=== PATIENT | female | born 1945 | race Caucasian/White ===

== ENCOUNTER 2016-11-07 13:16 | Day surgery (SDC) | payer OTHER, MEDICARE ==
[2016-11-07] MEDS ORDERED: ALBUTEROL 3 ML DEYVIAL ONE (13:42)
[2016-11-07] MEDS ORDERED: LIDOCAINE 1% 30 ML SDV ONE (14:00)
[2016-11-07] MEDS ORDERED: fentaNYL 100 MCG/2 ML INJ ONE (14:00)
[2016-11-07] MEDS ORDERED: LIDOCAINE 2% JELLY 5 ML TUBE ONE (14:00)
[2016-11-07] MEDS ORDERED: MIDAZOLAM 2 MG/2 ML VIAL ONE (14:00)
--- NOTE | 2016-11-08 20:16 | GPN ---
[f rep st] PROCEDURE NOTE PROCEDURE: Bronchoscopy. INDICATION: Bronchomalacia was previously diagnosed by CT scan of the chest. The significance of t his is being investigated by bronchoscopy. In addition, the vocal cords will be observed for vocal cord dysfunction. PROCEDURE NOTE: The procedure was done in the endoscopy unit in a negative pressure room, and 95 ma sks were worn. Appropriate time-out was performed. Informed consent was obtained from the patient. Topical anesthesia included a small amount of Hurricaine spray and 1% lidocaine, approximately 20 mL. Intravenous sedation was accomplished with 3 mg of Versed and 75 mcg of fentanyl. DESCRIPTION OF PROCEDURE: The bronchoscope was advanced through a bite block orally into the larynx . The vocal cords were observed. The larynx and the vocal cords were normal, and moved initially n ormally with respirations, phonation, and forced inhalation and exhalation maneuvers. Lidocaine was then applied to the vocal cords and this caused the patient to cough. The tip of the bronchoscope likely irritated the vocal cords as well. At this point, vocal cord dysfunction was observed. The patient's inspiratory efforts became somewhat raspy, and there was vocal cord adduction along the an terior 2/3 of the vocal cords with a relatively large "posterior chink" seen posteriorly. The [facility] hoscope was then advanced through the vocal cords and into the trachea and lower tracheobronchial tr ee bilaterally. Anatomy was normal bilaterally. There was mild erythema with scattered secretions consistent with a mild clinical bronchitis that the patient had developed 4 or 5 days prior to the p rocedure. Secretions were generally whitish and small in amounts. The trachea and the mainstem bro nchi bilaterally were observed with passive respiration. The airways remained intact with passive r espiration, and there was no evidence of narrowing. Forced inhalation and exhalation maneuvers were then done. Again, the airways remained intact regarding their circumference, and there was no evid ence of collapsibility with the forced exhalation maneuvers, no matter how vigorous the patient was in trying to do them. The patient was unable to perform the Valsalva maneuver secondary to her reji tion. She would not cooperate with the correct effort needed to do a Valsalva. The patient was the n instructed to cough, and the lower tracheobronchial tree was irritated somewhat with the scope whi ch caused increased coughing. With cough, there was narrowing of the trachea and of the proximal ma instem bronchi secondary to the membranous portions collapsing anteriorly. With cough, the narrowin g did not result in complete occlusion, but was perhaps more narrowed than in some people as the mem branous portion was forced anteriorly with positive intrathoracic pressure during a cough event. Th e tracheal rings themselves remained intact and appeared to be normal. There was no evidence of sig nificant bronchomalacia per Se. ASSESSMENT: 1. Vocal cord dysfunction was seen, as described above. This was only seen after irritation of the vocal cords. 2. No definite bronchomalacia was observed. With passive enforced exhalation, there was no collaps ibility of the trachea or of the proximal mainstem bronchi. With cough, the membranous portions of the trachea and proximal mainstem bronchi did collapse anteriorly. This is a normal physiologic res ponse of the membranous portion of the trachea and proximal bronchi. However, the membranous portio n perhaps collapsed somewhat more than in some individuals. However, total occlusion was not seen. I do not believe that this collapse is of physiologic significance for her pulmonary symptoms of morales bjective dyspnea or her complaints of shortness of breath at other times or hypoxemia at altitude. Copy requested to: Yaneth Maier M.D. [facility] /[id number]/MODL
== END 2016-11-07 17:10 | disposition home or self-care (01) ==
LOC: FSGY 13:16
PROVIDERS: ATTEND Internal Medicine Pulmonary Disease
PROC: 0BJ08ZZ Inspection of Tracheobronchial Tree, Via Natural or Artificial Opening Endoscopic (ICD-10-PCS; principal; 2016-11-07 14:30)
DX: R06.02 Shortness of breath (principal); R13.10 Dysphagia, unspecified; J38.3 Other diseases of vocal cords; G47.33 Obstructive sleep apnea (adult) (pediatric); I10 Essential (primary) hypertension; K21.9 Gastro-esophageal reflux disease without esophagitis; Z96.641 Presence of right artificial hip joint
CPT/HCPCS: J2250; J3010

== ENCOUNTER → 2017-07-18 | Outpatient (CLI) | payer OTHER, MEDICARE | LOC: FIMAGING 09:26 | PROVIDERS: ATTEND Internal Medicine | DX: Z12.31 Encounter for screening mammogram for malignant neoplasm of breast (principal) | CPT/HCPCS: G0202 ==

== ENCOUNTER → 2018-07-05 | Outpatient (CLI) | payer OTHER, MEDICARE | LOC: FIMAGING 14:51 | PROVIDERS: ATTEND Internal Medicine | DX: Z12.31 Encounter for screening mammogram for malignant neoplasm of breast (principal) ==

== ENCOUNTER → 2018-09-10 | Outpatient (CLI) | payer OTHER, MEDICARE | LOC: FIMAGING 14:55 | PROVIDERS: ATTEND Neurological Surgery | DX: M48.07 Spinal stenosis, lumbosacral region (principal); M53.87 Other specified dorsopathies, lumbosacral region ==

== ENCOUNTER 2018-10-14 07:15 | Inpatient (IN) | payer OTHER, MEDICARE ==
--- NOTE | 2018-10-14 06:05 | PDHPUP ---
History & Physical Update H&P update statement: This history and physical update is based on an assessment of the patient which was completed after admission or registration (within 24 hours), but prior to the surgery/procedure. H&P update: H&P reviewed & patient examined, no change in patient's condition since H&P completed
[2018-10-14] MEDS ORDERED: ceFAZolin 2 GM/DEXTROSE 100 ML IV ONE (08:44)
[2018-10-14] MEDS ORDERED: ACETAMINOPHEN 500 MG TAB PO ONE (08:44)
[2018-10-14] MEDS ORDERED: GABAPENTIN 300 MG CAP PO ONE (08:44)
[2018-10-14] MEDS ORDERED: REMIFENTANIL HCL 1 MG VIAL ONE ×2 (09:20)
[2018-10-14] MEDS ORDERED: PROPOFOL 200 MG/20 ML VIAL ONE (09:20)
[2018-10-14] MEDS ORDERED: PROPOFOL/EMULSION 500 MG/50 ML BOTTLE IV ONE ×5 (09:20→12:26)
[2018-10-14] MEDS ORDERED: THROMBIN (BOVINE) 20,000 UNIT VIAL TP ONE (09:51)
[2018-10-14] MEDS ORDERED: CHLORHEXIDINE GLUC HIBICLENS 118 ML BTL TP ONE (09:52)
[2018-10-14] MEDS ORDERED: BUPIVACAINE 0.25% 30 ML SDV ONE (09:52)
[2018-10-14] MEDS ORDERED: EPINEPHrine 1 MG/ML INJ ONE (09:52)
[2018-10-14] MEDS ORDERED: BACITRACIN 50,000 UNITS/10 ML SYR IRR ONE (09:52)
[2018-10-14] MEDS ORDERED: traMADol 50 MG TAB PO PRN (10:17)
[2018-10-14] MEDS ORDERED: NALOXONE HCL 0.4 MG/ML INJ IVP PRN ×3 (10:20→16:18)
[2018-10-14] MEDS ORDERED: ONDANSETRON 4 MG/2 ML VIAL IVP PRN (10:20)
[2018-10-14] MEDS ORDERED: LACTULOSE 20 GM/30 ML UDCUP PO PRN (10:20)
[2018-10-14] MEDS ORDERED: morphINE PCA 30 MG/30 ML PCA IV PRN (10:20)
[2018-10-14] MEDS ORDERED: diphenhydrAMINE 25 MG CAP PO PRN (10:20)
[2018-10-14] MEDS ORDERED: POLYETHYLENE GLYCOL 3350 17 GM PKT PO PRN (10:20)
[2018-10-14] MEDS ORDERED: HYDROCODONE/APAP 5/325 TAB PO PRN (10:20)
[2018-10-14] MEDS ORDERED: BISACODYL 10 MG SUPP PR PRN (10:20)
[2018-10-14] MEDS ORDERED: MAGNESIUM HYDROXIDE 30 ML UDCUP PO PRN (10:20)
[2018-10-14] MEDS ORDERED: ONDANSETRON DISINTEGRATING 4 MG TAB PO PRN (10:20)
[2018-10-14] MEDS ORDERED: HYDROmorphONE/DILAUDID 1 MG/ML INJ IVP PRN (10:20)
[2018-10-14] MEDS ORDERED: NS 1,000 ML IV SCH (10:30)
[2018-10-14] MEDS ORDERED: MIDAZOLAM 2 MG/2 ML VIAL IVP ONE (10:48)
--- NOTE | 2018-10-14 10:48 | PDANEPAE ---
ANE History of Present Illness CLBP, radiculopathy. Here for L4-S1 TLIF with emilie [place] Past Medical History - Cardiovascular History Hx Hypertension: Yes Hx Arrhythmias: No Hx Coronary Artery / Peripheral Vascular Disease: No Hx CHF / Valvular Disease: No Hx Palpitations: No Cardiovascular History Comment: pcp monitors bp medications - Pulmonary History Hx COPD: No Hx Asthma/Reactive Airway Disease: No Hx Recent Upper Respiratory Infection: No Hx Oxygen in Use at Home: No Hx Sleep Apnea: No Sleep Apnea Screening Result - Last Documented: Positive Pulmonary History Comment: current cold. tracheobronchomylasia - Neurologic History Hx Cerebrovascular Accident: No Hx Seizures: No Hx Dementia: No Neurologic History Comment: numbness L hand. - Endocrine History Hx Diabetes: No - Renal History Hx Renal Disorders: No - Liver History Hx Hepatic Disorders: No - Neurological & Psychiatric Hx Hx Neurological and Psychiatric Disorders: No - Cancer History Hx Cancer: No - Congenital Disorder History Hx Congenital Disorders: No - GI History Hx Gastrointestinal Disorders: Yes Gastrointestinal History Comment: reflux - Other Health History Other Health History: Mild hearing loss R ear. wears glasses. arthritis - Chronic Pain History Chronic Pain: Yes (generalized arthritis) - Surgical History Prior Surgeries: left mariela with Charanjit 01/29/14. Gamma knife R ear for neuroma 2010. appy 2002. R hip plasty 2001 ANE Review of Systems Review of Systems: - Exercise capacity METS (RN): 4 METS ANE Patient History - Allergies Allergies/Adverse Reactions: Tetanus Vaccines and Toxoid [Tetanus Vaccines & Toxoid] Allergy (Severe, Verified 11/06/16 12:38) Anaphylaxis latex Allergy (Verified 11/06/16 12:38) Rash - Home Medications Home Medications: Biotin 300 mcg PO DAILY 09/09/18 [Last Taken 09/09/18] Cholecalciferol Vit D3 [Vitamin D3 (*)] 2,000 units PO DAILY 09/09/18 [Last Taken 09/09/18] Gabapentin 1,200 mg PO TID 09/09/18 [Last Taken 09/09/18] Herbals/Supplements -Info Only 1 ea PO DAILY 09/09/18 [Last Taken Unknown] Hydrochlorothiazide [HCTZ (*)] 25 mg PO DAILY 09/09/18 [Last Taken 09/09/18] Irbesartan [Avapro] 300 mg PO DAILY 09/09/18 [Last Taken 09/09/18] Magnesium Oxide [Magnesium Oxide 400 mg (*)] 400 mg PO DAILY 09/09/18 [Last Taken 09/09/18] Metoprolol Tartrate [Lopressor 25 mg (*)] 25 mg PO HS 09/09/18 [Last Taken 09/09] Multivitamins [Multivitamin (*)] 1 each PO DAILY 09/09/18 [Last Taken 09/09/18] Erie-3 Fatty Acids [Fish Oil 1000 mg (*)] 1,000 mg PO HS 09/09/18 [Last Taken 09/09/18] Pantoprazole Sodium [Protonix 40mg (*)] 40 mg PO DAILY 09/09/18 [Last Taken 03/21] Pramipexole Di-HCl [Mirapex 0.25 mg (*)] 0.25 mg PO DAILY@17 09/09/18 [Last Taken 09/08/18] Ranitidine HCl [Zantac] 150 mg PO DAILY 09/09/18 [Last Taken 09/09/18] Tramadol HCl 50 mg PO DAILY PRN 09/09/18 [Last Taken Unknown] - NPO status NPO Since - Liquids (Date): 10/14/18 NPO Since - Liquids (Time): 07:00 NPO Since - Solids (Date): 10/13/18 NPO Since - Solids (Time): 20:30 - Smoking Hx Smoking Status: Former smoker - Family Anes Hx Family Hx Anesthesia Complications: none ANE Labs/Vital Signs - Vital Signs Blood Pressure: 168/61 Heart Rate: 67 Respiratory Rate: 16 O2 Sat (%): 95 Height: 157.48 cm Weight: 70.76 kg ANE Physical Exam - Airway Neck exam: FROM Mallampati Score: Class 2 Mouth exam: normal dental/mouth exam - Pulmonary Pulmonary: no respiratory distress, clear to auscultation - Cardiovascular Cardiovascular: regular rate and rhythym, no murmur, rub, or gallop - ASA Status ASA Status: III ANE Anesthesia Plan Anesthesia Plan: general endotracheal anesthesia Total IV Anesthesia: Yes
[2018-10-14] MEDS ORDERED: MIDAZOLAM 2 MG/2 ML VIAL ONE (10:54)
--- NOTE | 2018-10-14 10:59 | PDMN ---
Medical Necessity Medical necessity: 73 yo s/p TLIF CPT [address] [facility] [place] S820 Lumbar Fusion, 3 days, [facility] IP only
[2018-10-14] MEDS ORDERED: ROCURONIUM 50 MG/5 ML VIAL ONE (15:13)
[2018-10-14] MEDS ORDERED: LIDOCAINE 2% 100 MG/5 ML SYR ONE (15:13)
[2018-10-14] MEDS ORDERED: DEXAMETHASONE 4 MG/ML VIAL ONE (15:13)
[2018-10-14] MEDS ORDERED: ONDANSETRON 4 MG/2 ML VIAL ONE (15:13)
[2018-10-14] MEDS ORDERED: HYDROmorphONE/DILAUDID 2 MG/ML INJ ONE ×2 (15:14→16:22)
[2018-10-14] MEDS ORDERED: DIAZEPAM 5 MG/ML 1 ML SYR IVP PRN (15:27)
[2018-10-14] MEDS ORDERED: LR 500 ML IV PRN (15:27)
[2018-10-14] MEDS ORDERED: MEPERIDINE 25 MG/0.5 ML AMP IVP PRN (15:27)
--- NOTE | 2018-10-14 15:29 | POSTOPPROG ---
Post Op Note Date of Operation: 10/14/18 Surgeon: Meredith Shea Game Author: GUZMAN Rod Anesthesiologist: DO Marge Anesthesia: GET(General Endotracheal), Local (Specify) Pre-op Diagnosis: lumbar stenosis L4-S1 Post-op Diagnosis: lumbar stenosis L4-S1 Indication: lower back pain with BLE radiculopathy Procedure: TLIF L4/5 and L5/S1 Findings: see op report Inf/Abcess present in the surg proc area at time of surgery?: No Depth: Deep Incisional (Fascial) EBL: 100-500 Total fluids administered: see anesthesia record Complications: none Drains: Yang Prado
--- NOTE | 2018-10-14 15:33 | SOAPPROG ---
SOAP Progress Note Assessment/Plan: Post Op Check S: Awake and alert. NAD. Pt with expected lower back pain O: AFVSS, PERRLA/EOMI no droop CN 2-12 grossly intact +lt touch 5/5 BUE/BLE = CDI RAKESH in place A/P: 73 yo female that is s/p TLIF L4-S1 -orders in place -call with any questions or concerns -PT/OT in am -post op xrays pending in am -pt seen by Dr Shea as well -brace when out of bed Objective: Vital Signs Temp Pulse Resp BP Pulse Ox 36.7 C 67 16 168/61 H 95 10/14/18 09:16 10/14/18 10:48 10/14/18 10:48 10/14/18 10:48 10/14/18 10:48 ICD10 Worksheet Patient Problems: Problems Problem Status Onset Lumbar radicular pain Acute Lumbar stenosis Acute Osteoarthritis of hip Acute - ICD10 Problem Qualifiers (1) Lumbar stenosis Qualifiers: Neurogenic claudication status: with neurogenic claudication Qualified Code (s): M48.062 - Spinal stenosis, lumbar region with neurogenic claudication (2) Lumbar radicular pain
[2018-10-14] MEDS ORDERED: PHENYLEPHRINE HCL 100 MCG/ML SYR ONE (15:38)
--- NOTE | 2018-10-14 16:05 | POSTANESTH ---
Post Anesthetic Evaluation Cardiovascular Status: Normal, Stable Respiratory Status: Normal, Stable Level of Consciousness/Mental Status: Can Participate in Eval, Mildly Sleepy, Arousable Pain Control: Adequate, Prn Tx Ordered Nausea/Vomiting Control: Adequate, Prn Tx Ordered Complications Possibly Related to Anesthesia: None Noted (Extubated after following commands without issue. Small skin abraision noted where tube was tied due to malpositioning or pressure in prone position not recognizable on q15 facial checks. Treated temporary hypotension on presentation to PACU after bolus 0.5mg dilaudid with neosynephrine. Resolved and able to assume routine post op orders)
[2018-10-14] MEDS ORDERED: fentaNYL 100 MCG/2 ML INJ ONE (16:08)
[2018-10-14] MEDS: fentaNYL 100 MCG/2 ML INJ IVP PRN ×2 (16:09→16:20)
[2018-10-14] MEDS: HYDROmorphONE/DILAUDID 2 MG/ML INJ IVP PRN ×5 (16:25→17:41)
--- NOTE | 2018-10-14 16:33 | GOP ---
[f rep st] OPERATIVE REPORT DATE OF OPERATION: 10/14/2018 SURGEON: Jose Shea MD NEUROSURGEON: Jonnathan Shea MD. SALES AND MARKETING INTERN: Jl Rod PA-C. PREOPERATIVE DIAGNOSIS: Spondylolisthesis L4-5, L5-S1. Severe stenosis L4-5. Moderately severe kian nosis L5-S1. Bilateral lumbosacral radiculopathy, right worse than left, lumbar instability. Lumbar degenerative disk disease L4-5, L5-S1. POSTOPERATIVE DIAGNOSIS: Spondylolisthesis L4-5, L5-S1. Severe stenosis L4-5. Moderately severe kian nosis L5-S1. Bilateral lumbosacral radiculopathy, right worse than left, lumbar instability. Lumbar degenerative disk disease L4-5, L5-S1. PROCEDURE PERFORMED: Posterolateral and intervertebral arthrodesis with bilateral decompressions, L4 -5, L5-S1 (55503, 78735), placement of biomechanical intervertebral device, L4-5, L5-S1 (15804 x2), p osterior segmental instrumentation, L4, L5, S1 (02170), spinal stereotaxy, microscope, same incision bone graft harvest. FINDINGS: ESTIMATED BLOOD LOSS: 200 cc. INDICATIONS: The patient is a 73-year-old who has had many years of severe axial low back pain and r adiating leg pain, much worse on the right than on the left, and her MRI demonstrated worsening steno sis, L4-5, L5-S1, with a significant spondylolisthesis at L4-5, at the grade 1-2 junction. She had t errible disk degenerative disease at those levels and had progressive stenosis on her MRIs. I sugges deborah a two-level decompression and fusion. She had some abnormalities already at L3-4 and the early s igns of breakdown even there, but I did not suggest that she have surgery there, although I do think in time that may become necessary. She understood this. She knew there was risk of continued sympto ms, screw and hardware malposition, malfunction, nerve injury, spinal fluid leak, failure to improve. She knew there was risk of pseudoarthrosis and the possible need for revision surgery, as well. azeem wanted to proceed despite these known risks. DESCRIPTION OF PROCEDURE: Patient was taken to the operating room, placed in supine position. Gener al anesthesia was begun. She was flipped prone onto the Yang table. Care was taken to pad all po ints of contact. Her back was sterilely prepped and draped in usual fashion. A localizing x-ray was taken. The midline incision was made. It was about 7.5 cm in length. The subcutaneous tissue was dissected using Bovie cautery down to the fascia, and a subperiosteal dissection was made down the L4 -5, L5-S1 lamina. We exposed even part of the L3 lamina. We denuded the bilateral hypertrophic face t joints at L4-5, L5-S1 after she had a localizing x-ray. We then attached the Stealth reference fra me to the L5 spinous process, performed an O-arm spin, and using frameless Stealth stereotaxy, we jarrett ronnie pedicle screws bilaterally at L4-5, S1. We fit a 55 mm surya on the left and a 60 mm surya on the ri ght and distracted both on the right and the left, and had excellent reduction, not perfect reduction , but a significant reduction of her spondylolisthesis at L4-5 down to a grade 1, and it is significa ntly opened the neural foramen. The AP images also looked great. We final-tightened the screws and confirmed our reduction with x-rays. We removed the soft tissue of the bone at L4-5, L5-S1. We then harvested the inferior L4 and the complete L5 spinous process for autologous grafting purposes. We drilled bilateral laminas of L4-5 and decompressed the lateral recesses bilaterally at L4-5, L5-S1. We harvested this bone too for autologous grafting purposes. We got great bilateral decompressions, both on the left and the right, but interestingly at L4-5, the inferior portion of the hypertrophic f acet was totally adherent to the dura and we had to work our way around it and then peel it off from a rostral to caudal direction. The caudal to rostral direction did not work. This took additional t harsh and it was challenging, but we were able to get a great decompression. There was very substantia l indentation of the dura on the right-hand side and a lesser indentation on the left at the L4-5 lev el. After decompressing both sides, we also investigated the foramen on the right at L4-5 and that f oramen was totally decompressed as well as the L5-S1 foramen. We then incised the L4-5 disk and the L5-S1 disk and removed the disk and the cartilaginous endplates completely. We roughened the subchon dral bone to create arthrodesis and chose 7 x 23 mm expandable devices to be inserted there. We put bone autograft and BMP into the disk space. We placed 2 mg of BMP into the disk spaces and 2 mg post erolaterally for a total of 4 mg for the entire surgery. We placed the implant and expanded it under fluoroscopic guidance and then decorticated all remaining bone posterolaterally bilaterally at L4-5, S1. We then placed bone autograft and BMP posterolaterally bilaterally and then placed a subfascial drain. We then closed the incision in multiple layers using Vicryl sutures. A running PDS was plac ed in the skin itself. The patient was reversed from anesthesia, extubated, and transferred to [facility] room in stable condition. There were no complications. COMPLICATIONS: None. INSTRUMENTATION USED: Medtronic Solara 5.5 mm pedicle screw system. We used two 7 x 23 mm Elevate c ages. We used 4.0 mg of BMP. /[id number]/MODL
[2018-10-14] MEDS ORDERED: METHOCARBAMOL 750 MG TAB ONE (16:40)
[2018-10-14] MEDS: METHOCARBAMOL 750 MG TAB PO PRN (16:41)
[2018-10-14] MEDS: oxyCODONE IR 5 MG TAB PO PRN (18:31)
[2018-10-14] MEDS: ACETAMINOPHEN 500 MG TAB PO SCH ×2 (18:47→21:45)
[2018-10-14] MEDS: GABAPENTIN 400 MG CAP PO SCH ×2 (18:47→21:45)
[2018-10-14] MEDS: GABAPENTIN 300 MG CAP PO SCH ×2 (18:47→21:45)
[2018-10-14] MEDS: SENNOSIDES/DOCUSATE SODIUM TAB PO SCH (20:23)
[2018-10-14] MEDS: FAMOTIDINE 20 MG TAB PO SCH (20:23)
[2018-10-14] MEDS: ceFAZolin 2 GM/DEXTROSE 100 ML IV SCH (20:23)
[2018-10-14] MEDS: METOPROLOL TARTRATE 25 MG TAB PO SCH (20:23)
[2018-10-14] MEDS: PRAMIPEXOLE 0.25 MG TAB PO SCH (21:45)
[2018-10-15 05:45] LABS: PLATELET COUNT 211 10^3/uL (150-400)
[2018-10-15] MEDS: ACETAMINOPHEN 500 MG TAB PO SCH ×3 (06:31→23:00)
[2018-10-15] MEDS: ceFAZolin 2 GM/DEXTROSE 100 ML IV SCH (06:32)
--- NOTE | 2018-10-15 07:41 | NEUSURGPN ---
Date of Surgery: 10/14/18 Post Op Day: 1 Assessment/Plan: Assessment: 73 yo female that is s/p TLIF L4-S1 POD #1 Plan: -orders in place -call with any questions or concerns -PT/OT pending this am -post op xrays pending this am -RAKESH in place-will continue -pt seen by Dr Shea as well -brace when out of bed -pt understands and agrees Subjective: Awake and alert. Pt with expected lower back pain. No aguilera/neck/cp/sob/abd or gu complaints. No f/c/n/v/d. Objective: AFVSS, PERRLA/EOMI no droop CN 2-12 grossly intact +lt touch 5/5 BUE/BLE = CDI RAKESH in place Neuro Check Frequency: per routine Urinary Catheter in Place: No Catheter Insertion Date: 10/14/18 - Physician Discussed Patient with : Shabbir Patient Seen by : Shabbir Neurosurgery Physical Exam - Vitals, I&O, Labs I and O 10/14/18 10/15/18 10/16/18 05:59 05:59 05:59 Intake Total 2090 1045 Output Total 2295 Balance -205 1045 Weight 70.76 kg Intake: Oral (ml) 90 IV Intake (ml) 2000 IV Infused (ml) 1045 Ns 1,000 ml @ 75 mls/hr 825 IV CONT DAYANARA Rx#: [id number] ceFAZolin 2 GM/DEXTROSE 220 100 ml @ 200 mls/hr IV Q8H DAYANARA Rx#:[id number] Output: Urine (ml) 1650 Catheter 1650 Estimated Blood Loss (ml) 200 RAKESH Drain Output (ml) 445 Back Yang Prado 445 Vital Signs Temp Pulse Resp BP Pulse Ox 36.9 C 84 16 129/62 H 95 10/15/18 04:00 10/15/18 04:00 10/15/18 04:00 10/15/18 04:00 10/15/18 04:00 Laboratory Results 10/15/18 05:14 10/15/18 05:14 ICD10 Worksheet Patient Problems: Problems Problem Status Onset Lumbar radicular pain Acute Lumbar stenosis Acute Osteoarthritis of hip Acute - ICD10 Problem Qualifiers (1) Lumbar stenosis Qualifiers: Neurogenic claudication status: with neurogenic claudication Qualified Code (s): M48.062 - Spinal stenosis, lumbar region with neurogenic claudication (2) Lumbar radicular pain
[2018-10-15] MEDS: GABAPENTIN 400 MG CAP PO SCH ×3 (08:43→23:00)
[2018-10-15] MEDS: FAMOTIDINE 20 MG TAB PO SCH ×2 (08:43→20:35)
[2018-10-15] MEDS: PANTOPRAZOLE SODIUM 40 MG TAB PO SCH (08:43)
[2018-10-15] MEDS: MAGNESIUM OXIDE 400 MG TAB PO SCH (08:44)
[2018-10-15] MEDS: IRBESARTAN 150 MG TAB PO SCH (08:44)
[2018-10-15] MEDS: METHOCARBAMOL 750 MG TAB PO PRN ×3 (08:44→23:05)
[2018-10-15] MEDS: HYDROCHLOROTHIAZIDE 25 MG TAB PO SCH (08:44)
[2018-10-15] MEDS: SENNOSIDES/DOCUSATE SODIUM TAB PO SCH ×2 (08:45→20:35)
[2018-10-15] MEDS: BIOTIN 300 MCG PO SCH (08:45)
[2018-10-15] MEDS ORDERED: NON-FORMULARY NEW DRUG (Ranitidine Hcl [Zantac] 150 MG) PO SCH (09:00)
[2018-10-15] MEDS: oxyCODONE IR 5 MG TAB PO PRN (14:17)
--- NOTE | 2018-10-15 15:14 | ASMTCMCOM ---
CM Note CM Note Notes: Pt s/p TLIF L4/5 and L5/S1. Pt resides with spouse. PT rec home/outpatient. Pt was pre-arranged with [facility] and does request HC service. Pt address/phone verified. D/c plan of care: Home with [facility] PT Date Signed: 10/15/2018 03:14 PM Electronically Signed By:AGNIESZKA Falcon
[2018-10-15] MEDS: PRAMIPEXOLE 0.25 MG TAB PO SCH (16:58)
[2018-10-15] MEDS: METOPROLOL TARTRATE 25 MG TAB PO SCH (20:35)
[2018-10-16] MEDS: ACETAMINOPHEN 500 MG TAB PO SCH (06:15)
[2018-10-16] MEDS: METHOCARBAMOL 750 MG TAB PO PRN (06:16)
--- NOTE | 2018-10-16 07:57 | NEUSURGPN ---
Date of Surgery: 10/14/18 Post Op Day: 2 Assessment/Plan: Assessment: 73 yo female that is s/p TLIF L4-S1 POD #2 Plan: -orders in place -call with any questions or concerns -PT/OT-CPM -post op xrays look good -RAKESH in place-will remove this am -plan for dc later today -d/w pt and about plan for weaning gabapentin -pt seen by Dr Shea as well -brace when out of bed -pt understands and agrees Subjective: Awake and alert. NAD. No aguilera/neck/chest/abd or gu complaints. No f/c/n/v/d. Objective: AFVSS, PERRLA/EOMI no droop CN 2-12 grossly intact +lt touch 5/5 BUE/BLE = CDI RAKESH in place Neuro Check Frequency: per routine Urinary Catheter in Place: No Catheter Insertion Date: 10/14/18 - Physician Discussed Patient with : Shabbir Patient Seen by : Shabbir Neurosurgery Physical Exam - Vitals, I&O, Labs I and O 10/15/18 10/16/18 10/17/18 05:59 05:59 05:59 Intake Total 2090 1745 Output Total 2295 2575 Balance -205 -830 Weight 70.76 kg 70.76 kg Intake: Oral (ml) 90 700 IV Intake (ml) 2000 IV Infused (ml) 1045 Ns 1,000 ml @ 75 mls/hr 825 IV CONT DAYANARA Rx#: [id number] ceFAZolin 2 GM/DEXTROSE 220 100 ml @ 200 mls/hr IV Q8H DAYANARA Rx#:[id number] Output: Urine (ml) 1650 2250 Catheter 1650 Toilet 2250 Estimated Blood Loss (ml) 200 RAKESH Drain Output (ml) 445 325 Back Yang Prado 445 325 Other: Number of Voids Toilet 2 Vital Signs Temp Pulse Resp BP Pulse Ox 36.7 C 60 17 114/51 L 91 L 10/16/18 07:53 10/16/18 07:53 10/16/18 07:53 10/16/18 07:53 10/16/18 07:53 Laboratory Results 10/15/18 05:14 10/15/18 05:14 ICD10 Worksheet Patient Problems: Problems Problem Status Onset Lumbar radicular pain Acute Lumbar stenosis Acute Osteoarthritis of hip Acute - ICD10 Problem Qualifiers (1) Lumbar stenosis Qualifiers: Neurogenic claudication status: with neurogenic claudication Qualified Code (s): M48.062 - Spinal stenosis, lumbar region with neurogenic claudication (2) Lumbar radicular pain
--- NOTE | 2018-10-16 08:07 | PDIAF ---
- Diagnosis Diagnosis: s/p lumbar fusion Code Status: Full Code - Medication Management Pst Specialist Antibiotics: none Discharge Medications: electronically signed and located in the Home Medication List. PICC Care - Routine: N/A - Orders Services needed: Home Care, Physical Therapy Home Care Face to Face: I certify that this patient was under my care and that I had the required [id number] encounter meeting the encounter requirements on the discharge day. My findings support the fact that the patient is homebound as defined in Home Care Face to Face Continued: CMS Chapter 7 Medicare Benefits Manual 30.1.1 , The condition of the patient is such that there exists a normal inability to leave home and consequently, leaving home would require a considerable and taxing effort. Oxygen: to keep O2 sat above 90% Diet Recommendation: no restrictions on diet Diet Texture: Regular Texture Diet Tube feeding: none Talbert: Not applicable Additional Instructions: -take medications as directed -call with any questions or concerns -see Dr Tong team in 2-3 weeks for a recheck -wear brace as directed - Follow Up Care Current Providers and Referrals: Sylvia Kuhn MD [Primary Care Provider] - Meredith Shea MD [Medical Doctor] - (follow up in 2-3 weeks)
[2018-10-16] MEDS: BIOTIN 300 MCG PO SCH (08:51)
[2018-10-16] MEDS: IRBESARTAN 150 MG TAB PO SCH (08:54)
[2018-10-16] MEDS: HYDROCHLOROTHIAZIDE 25 MG TAB PO SCH (08:54)
[2018-10-16] MEDS: GABAPENTIN 400 MG CAP PO SCH (08:57)
[2018-10-16] MEDS: MAGNESIUM OXIDE 400 MG TAB PO SCH (08:57)
[2018-10-16] MEDS: SENNOSIDES/DOCUSATE SODIUM TAB PO SCH (08:57)
[2018-10-16] MEDS: PANTOPRAZOLE SODIUM 40 MG TAB PO SCH (08:58)
[2018-10-16] MEDS: FAMOTIDINE 20 MG TAB PO SCH (08:58)
[2018-10-16 09:01] VITALS: BP 109/62
--- NOTE | 2018-10-16 10:11 | ASMTLACE ---
LACE Length of stay for Answers: 3 days current admission Acuity / Level of Answers: Yes Care: Did the patient have an inpatient admission? Comorbidities - select Answers: Opioid dependence all that apply / Chronic pain Other Notes: HTN # of Emergency department Answers: 0 visits in the last 6 months Score: 11 Date Signed: 10/16/2018 10:11 AM Electronically Signed By:AGNIESZKA Falcon
--- NOTE | 2018-10-16 10:14 | ASMTCMCOM ---
CM Note CM Note Notes: Pt medically stable for d/c with [facility]. Orders sent to [facility] in [employer] and Adina notified. Date Signed: 10/16/2018 10:13 AM Electronically Signed By:AGNIESZKA Falcon
--- NOTE | 2018-10-16 11:38 | ASDISCHSUM ---
Discharge Information Plan Status:Home with Home Health Medically Cleared to Leave: Discharge Date:10/16/2018 11:13 AM CM D/C Disposition: ADT D/C Disposition:Home Health Service Projected Discharge Date:10/16/2018 11:00 AM Transportation at D/C: Discharge Delay Reason: Follow-Up Date:10/16/2018 11:00 AM Discharge Slot: Final Diagnosis: Placement Information Referral Type:*Home Health Care Services Referral ID:[id number] Provider Name:[facility] ([facility]) Address 1:[address] [address] Address 2: City:[place] Selection Factors: State:[place] Patient Contact Information Contact Name:SUPRIYA Relationship: Address:[address] City:[facility] Phone: State/Zip Code:[place] [address] Email: Financial Information Financial Class:Medicare Primary Plan Desc:MEDICARE INPATIENT Primary Plan Number:[id number] Secondary Plan Desc:JUANITO/MDR SUPPLEMENT Secondary Plan Number:[id number] Assessment Information LACE LACE Length of stay for Answers: 3 days current admission Acuity / Level of Answers: Yes Care: Did the patient have an inpatient admission? Comorbidities - select Answers: Opioid dependence all that apply / Chronic pain Other Notes: HTN # of Emergency department Answers: 0 visits in the last 6 months Score: 11 Date Signed: 10/16/2018 10:11 AM Electronically Signed By:AGNIESZKA Falcon RAMONE CM Progress Note CM Note CM Note Notes: Pt s/p TLIF L4/5 and L5/S1. Pt resides with spouse. PT rec home/outpatient. Pt was pre-arranged with [facility] and does request HC service. Pt address/phone verified. D/c plan of care: Home with [facility] PT Date Signed: 10/15/2018 03:14 PM Electronically Signed By:AGNIESZKA Falcon [facility] CM Progress Note CM Note CM Note Notes: Pt medically stable for d/c with [facility]. Orders sent to [facility] in [place] and Adina notified. Date Signed: 10/16/2018 10:13 AM Electronically Signed By:AGNIESZKA Falcon Intervention Information
[2018-10-17] MEDS ORDERED: ENOXAPARIN 40 MG/0.4 ML SYR SC SCH (09:00)
== END 2018-10-16 11:13 | disposition home health service (06) | DRG 455 ==
LOC: F3N 08:38
PROVIDERS: ADMIT Neurological Surgery; ATTEND Neurological Surgery
DX: M43.16 Spondylolisthesis, lumbar region (principal); M48.062 Spinal stenosis, lumbar region with neurogenic claudication; M51.17 Intervertebral disc disorders with radiculopathy, lumbosacral region; M51.36 Other intervertebral disc degeneration, lumbar region; M51.37 Other intervertebral disc degeneration, lumbosacral region; I10 Essential (primary) hypertension; K21.9 Gastro-esophageal reflux disease without esophagitis; Z96.643 Presence of artificial hip joint, bilateral; Z87.891 Personal history of nicotine dependence
CPT/HCPCS: 97116-GP; 97161-GP; 97165-GO; 97530-GP; 97535-GO; C1713; J0171; J0690; J1100; J1170; J2001; J2250; J2370; J2405; J2704; J3010

== ENCOUNTER → 2018-12-10 | Outpatient (CLI) | payer OTHER, MEDICARE | LOC: FIMAGING 12:45 | PROVIDERS: ATTEND Physician Assistant | DX: M54.5 Low back pain (principal); Z98.1 Arthrodesis status ==